=== PATIENT | female | born 1970 | race Caucasian/White ===

== ENCOUNTER → 2017-02-05 | Outpatient (CLI) | payer OTHER | END | disposition home or self-care (01) | LOC: RAD.S 08:35 | DX: Z12.31 Encounter for screening mammogram for malignant neoplasm of breast (principal); R92.0 Mammographic microcalcification found on diagnostic imaging of breast ==

== ENCOUNTER → 2017-02-07 | Outpatient (CLI) | payer OTHER | END | disposition home or self-care (01) | LOC: RAD.S 13:50 | DX: R92.0 Mammographic microcalcification found on diagnostic imaging of breast (principal) ==

== ENCOUNTER → 2017-02-09 | Outpatient (CLI) | payer OTHER | END | disposition home or self-care (01) | LOC: RAD.S 10:25 | PROC: 0HBU3ZX Excision of Left Breast, Percutaneous Approach, Diagnostic (ICD-10-PCS; principal; 2017-02-09) | DX: N60.32 Fibrosclerosis of left breast (principal); R92.0 Mammographic microcalcification found on diagnostic imaging of breast; N60.02 Solitary cyst of left breast; N60.92 Unspecified benign mammary dysplasia of left breast ==